=== PATIENT | male | born 1955 | race Caucasian/White ===

== ENCOUNTER → 2019-01-27 | Outpatient (CLI) | payer BC ==
[~2019-01-27] MED LIST: DIATRIZOATE MEGL/DIATRIZOA SOD 30 ML BTL PO ONE; IOPAMIDOL 370 MG/ML 200 ML INFUS..BTL INJ ONE; PRILOSEC OTC20 MG PO; SODIUM CHLORIDE 0.9% 50ML 50 ML ONE
[2019-01-27 10:22] LABS: BLOOD UREA NITROGEN 12 mg/dL (7-26); BUN/CREATININE RATIO 12 (6-25); CREATININE, SERUM 0.98 mg/dL (0.72-1.25); EST GLOMERULAR FILTRATION RATE > 60 ML/MIN (60-)
--- NOTE | 2019-01-27 14:41 | Diagnostic Imaging Report ---
EXAM: CT Pelvis WITH intravenous contrast INDICATION: Rectal mass COMPARISON: None. TECHNIQUE: The pelvis was scanned utilizing a multidetector helical scanner from the aortic bifurcation to the pubic symphysis after administration of IV contrast. Coronal and sagittal reformations were obtained. Routine protocol was performed. Scan was performed during portal venous phase. IV CONTRAST: 100mL of Isovue 370 ORAL CONTRAST: Gastrografin RADIATION DOSE: Total DLP: 288.2 mGy*cm Dose modulation, iterative reconstruction, and/or weight based adjustment of the mA/kV was utilized to reduce the radiation dose to as low as reasonably achievable. FINDINGS: PELVIC ORGANS/BLADDER: Unremarkable. PERITONEUM / RETROPERITONEUM: No free air or fluid. LYMPH NODES: No lymphadenopathy. VESSELS: Heavy diffuse atherosclerotic calcifications of the distal abdominal aorta and major branches. GI TRACT: Contrast fills the rectum and visualized colon and part of the visualized small bowel. No abnormal bowel wall thickening or bowel obstruction. Normal appendix. BONES AND SOFT TISSUES: Unremarkable. IMPRESSION: No acute findings in the abdomen or pelvis. Specifically, no abnormal bowel wall thickening or bowel obstruction. Signed by: Luann Salazar MD on 01/27/2019 2:38 PM
== END ==
LOC: CT 09:25
PROVIDERS: ATTEND Internal Medicine Gastroenterology
DX: K62.89 Other specified diseases of anus and rectum (principal)
CPT/HCPCS: 36415; 72193; 82565; 84520; Q9967

== ENCOUNTER → 2019-02-08 | Day surgery (SDC) | payer BC ==
[2019-02-04 09:15] LABS: BASOPHILS % 0.4 % (0.0-1.0); EOSINOPHILS # (AUTO) 0.4 (0.0-0.4); EOSINOPHILS % 6.1 % (0.0-6.0); HEMOGLOBIN 14.6 g/dL (14.0-18.0); LYMPHOCYTES # (AUTO) 1.9 (1.0-3.2); LYMPHOCYTES % 27.4 % (18.0-39.1); MEAN CORPUSCULAR HEMOGLOBIN 31.4 pg (28-32); MEAN CORPUSCULAR VOLUME 92.5 fL (81-99); MONOCYTES # (AUTO) 0.7 (0.2-0.8); MONOCYTES % 10.5 % (4.4-11.3); NEUTROPHILS # (AUTO) 3.8 (2.1-6.9); NEUTROPHILS % 55.3 % (38.7-80.0); PLATELET COUNT 226 x10e3/uL (140-360); RED BLOOD COUNT 4.65 x10e6/uL (4.3-5.7); RED CELL DISTRIBUTION WIDTH 11.5 % (11.7-14.4)
[~2019-02-08] MED LIST changes: +ASPIRIN81 MG PO; +ATORVASTATIN CA20 MG PO; -DIATRIZOATE MEGL/DIATRIZOA SOD 30 ML BTL PO ONE; +FENTANYL CITRATE/PF 100MCG/2 ML INJ ONE; -IOPAMIDOL 370 MG/ML 200 ML INFUS..BTL INJ ONE; +LISINOPRIL10 MG PO; +MIDAZOLAM HCL 2 MG/2 ML VIAL ONE; +PROPOFOL IV EMULSION 10 MG/ML 50 ML VIAL ONE; -SODIUM CHLORIDE 0.9% 50ML 50 ML ONE
--- OUTSIDE RECORDS SUMMARY | 2019-02-08 10:23 | XMS REPORT ---
[facility] Address Unknown Phone Unavailable Care Team Providers Care Drapery Estimator Name Role Phone EDMUNDO OKEEFE Unavailable Unavailable Problems This patient has no known problems. Allergies, Adverse Reactions, Alerts This patient has no known allergies or adverse reactions. Medications This patient has no known medications. Results Test Description Test Time Test Comments Text Results Atomic Results Result Comments CT PELVIS W 2019-01-27 14:30:00 [place] [address] Patient Name: EMANUEL BYERS MR #: [id number] : 1955 Age/Sex: 63/M Req #: [id number] Adm Physician: Ordered by: EDMUNDO OKEEFE MD Report #: [id number] Location: CT Room/Bed: Procedure: [id number] CT/CT PELVIS W Exam Date: 01/27/19 Exam Time: 1400 REPORT STATUS: Signed EXAM: CT Pelvis WITH intravenous contrast INDICATION: Rectal mass COMPARISON: None. TECHNIQUE: The pelvis was scanned utilizing a multidetector helical scanner from the aortic bifurcation to the pubic symphysis after administration of IV contrast. Coronal and sagittal reformations were obtained. Routine protocol was performed. Scan was performed during portal venous phase. IV CONTRAST: 100mL of Isovue 370 ORAL CONTRAST: Gastrografin RADIATION DOSE: Total DLP: 288.2 mGy*cm Dose modulation, iterative reconstruction, and/or weight based adjustment of the mA/kV was utilized to reduce the radiation dose to as low as reasonably achievable. FINDINGS: PELVIC ORGANS/BLADDER: Unremarkable. PERITONEUM / RETROPERITONEUM: No free air or fluid. LYMPH NODES: No lymphadenopathy. VESSELS: Heavy diffuse atherosclerotic calcifications of the distal abdominal aorta and major branches. GI TRACT: Contrast fills the rectum and visualized colon and part of the visualized small bowel. No abnormal bowel wall thickening or bowel obstruction. Normal appendix. BONES AND SOFT TISSUES: Unremarkable. IMPRESSION: No acute findings in the abdomen or pelvis. Specifically, no abnormal bowel wall thickening or bowel obstruction. Signed by: Susy Salazar MD on 01/27/2019 2:38 PM Dictated By: SUSY SALAZAR MD [id number] Transcribed By: TAB on 01/27/19 1438 COPY TO: EDMUNDO OKEEFE MD
--- OUTSIDE RECORDS SUMMARY | 2019-02-08 10:23 | XMS REPORT | Encounter Summary ---
Author Organization Unknown Address [address] [place] [address] Phone [phone] Care Team Providers Care Appliance Painter And Refinisher Name Role Phone Dr. Isamar Machado 3 [phone] Wilner Rosas MD 82 [phone] Savannah Avina MD 105 [phone] Reason for Visit Nicotine dependence; Right leg problem Instructions 1. Coronary arteriosclerosis in [place] artery 2. Right side sciatica chiropractic referral physical therapy referral sciatica: exercises sciatica: care instructions sciatica education 3. Adult health examination CMP, serum or plasma lipid panel, serum CBC w/ auto diff TSH, serum or plasma 4. Nicotine dependence 5. Body mass index 20-24 - normal 6. Immunization Adacel (Tdap Adolesn/Adult)(PF)2 Lf-(2.5-5-3-5)-5 Lf/0.5 mL IM syringe 7. Screening for disorder hepatitis C virus RNA, quant, PCR, serum or plasma PSA, serum or plasma 8. Hypertensive disorder 9. Hyperlipidemia high cholesterol: care instructions 10. Squamous cell carcinoma of skin Discussion Note: None recorded. Plan of Care Reminders Provider Appointments Est Patient 08/17/2018 9:00AM Isamar Machado MD Lab CMP, Serum or Plasma 07/13/2018 [facility] Lipid Panel, Serum 07/13/2018 [facility] CBC W/ Auto Diff 07/13/2018 [facility] TSH, Serum or Plasma 07/13/2018 [facility] Hepatitis C Virus RNA, Quant, PCR, Serum or Plasma 07/13/2018 [facility] PSA, Serum or Plasma 07/13/2018 [facility] Referral Chiropractic Referral 07/13/2018 Physical Therapy Referral 07/13/2018 Procedures None recorded. Surgeries None recorded. Imaging None recorded. Medications Name Start Date - QD - HUE atorvastatin 20 mg tablet Take 1 tablet every day by oral route for 30 days. cyclobenzaprine 10 mg tablet Take 1 tablet 3 times a day by oral route as needed. lisinopril 10 mg tablet Take 1 tablet every day by oral route for 30 days. naproxen 500 mg tablet Take 1 tablet twice a day by oral route as needed. Medications Administered None recorded. Vitals Height Weight BMI Blood Pressure 6 ft 164 lbs 22.2 kg/m2 (1) 146/86 mm[Hg] (2) 144/86 mm[Hg] Lab Results None recorded. Allergies Code Code System Name Reaction Severity Status Onset 2670 RxNorm Codeine Vomiting Active 5640 RxNorm Ibuprofen Active Problems Name Status Onset Date Source Hyperlipidemia Active 07/22/2017 Hypertensive Disorder Active 07/22/2017 Nicotine Dependence Active 04/11/2018 Peripheral Vascular Disease Active 04/11/2018 Lumbago with Sciatica Active 04/11/2018 Squamous Cell Carcinoma of Skin Active 07/14/2018 Coronary Arteriosclerosis in [place] Artery Active 07/14/2018 Procedures None recorded. Vaccine List Vaccine Type Tdap 07/13/20180.5 mL Social History Smoking Status Former Smoker Past Encounters 07/13/2018 Coronary Arteriosclerosis in [place] Artery; Right Side Sciatica; Adult Health Examination; Nicotine Dependence; Body Mass Index 20-24 - Normal; Immunization; Screening for Disorder; Hypertensive Disorder; Hyperlipidemia; Squamous Cell Carcinoma of Skin Isamar Machado MD: [id number] [place] [address], Ph. History of Present Illness Lower Leg Reported By: Patient HPI: Location: right, posterior, deep. Quality: aching, burning, dull, deep, frequent. Severity: moderate, pain level 5/10. Duration: 6 months. Timing: chronic, gradual, recurrent. Alleviating Factors: standing, position change: leg , exercise, stretching, OTC medication. Aggravating Factors: sitting. Associated Symptoms: no redness, no warmth, no ecchymosis, no drainage, no fever, no chills, no weight loss, numbness, tingling Note:62yo male presents for smoking cessation follow-up. Stopped Chantix two weeks ago. Has not resumed smoking. Quit smoking on 05/04/18 with no cigarettes! Less cough. Weight up 3#.<div>Since last visit, pt saw his stem shaper, Dr Rosas on 06/22/18. Consult note reviewed. Pt has f/u with Dr Rosas tomorrow. Tried Dyazide, but pt had side effects of leg cramps on it & stopped after a week. Swelling did resolve. Had vascular studies of both legs - normal per pt. Currently on ASA 81mg qd, lisinopril 10mg qd, and atorvastatin 20mg qhs.</div>< div>Stopped taking naproxen along with dyazide. Has not tried muscle relaxant, cyclobenzaprine.
<div>
</div><div>Is considering chiropractor evaluation. Has been to PT in past. Right leg pain worse with sitting. Airrosti pressure point treatment. No back pain. Posterior right leg pain for past 6mo. See below. </div><div>
</div><div>Previously:</div><div>Hx of right posterior leg pain for the past 6-8wks. Worse with sitting. Better with standing, walking everyday. Has past hx of herniated disc in lumbar spine (XR, MRI with Dr Peters). Was sent to Dr Pearl, neurosurgery & ended up not having surgery. Went to PT. Reviewed historic records & MRI of lumbar spine from 11/2014 & XR of lumbar spine 10/2014 showed degenerative disc disease on right at L5-S1 & mild at L4-5 on right.
</div><div><div>Went to urgent care last June 2017 for muscle spasms in back.</div><div>
</div><div>PMHx:</div><div>Was recently seen last fall & had Moh's surgery for SCC on tip of nose by Dr Compa Yates on 02/08/18. Has had previous skin cancer removed by Dr Yates. No melanoma.</div><div>Pt had cardiac cath in 06/[address] Rosas, stem shaper found no significant blockage. No stent, no bypass, no hx of [place].< /div><div>Htn - started on medication by Dr Rosas in 2014</div><div> Hyperlipidemia - started on atorvastatin by Dr Rosas in 2014</div><div>Family hx of CAD in father - father had valve replacement & CABGx2 age 80</div><div> Smoker. 1ppd. Takes care of young grandchildren during week with , including 2yo.</div></div></div> Review of Systems:ROS as noted in the HPI Review of Systems Comprehensive General Adult ROS Reported By: Patient Constitutional: Constitutional: no fever Eyes: Eyes: no vision change Cardiovascular: Cardiovascular: no chest pain, no palpitations, no lightheadedness Respiratory: Respiratory: no cough, no wheezing, no shortness of breath Gastrointestinal: Gastrointestinal: no abdominal pain, no nausea, no vomiting, no constipation, no diarrhea Musculoskeletal: Musculoskeletal: no swelling in the extremities, muscle aches, arthralgias/joint pain, back pain Neurologic: Neurologic: no loss of consciousness, no headaches Psychiatric: Psych: no depression, no alcohol abuse, no anxiety, no suicidal thoughts Physical Exam Lower Leg, General Adult Exam (male) Reported By: Patient Constitutional: General Appearance: healthy-appearing, NAD Gait and Station: Appearance: normal gait Cardiovascular System: Heart Auscultation: RRR, normal S1, normal S2, no murmurs Skin: Inspection and palpation: no rash, no lesions; fair complexion, prior skin cancers removed Neurologic: Sensation: grossly intact. Reflexes: DTRs 2+ bilaterally throughout Eyes: Lids and Conjunctivae: non-injected, no discharge Neck: Neck: supple, trachea midline. Thyroid: no enlargement, non-tender Lungs: Auscultation: breath sounds normal Abdomen: Inspection and Palpation: soft, non-distended, no tenderness, no guarding Musculoskeletal:: Motor Strength and Tone: normal, normal tone. Joints, Bones, and Muscles: normal movement of all extremities, no bony abnormalities, tenderness. Extremities: no edema, no palpable cord Back: Thoracolumbar Appearance: ; Mildly tender in the lumbar area. Normal ROM. Negative straight leg raising test bilaterally
--- OUTSIDE RECORDS SUMMARY | 2019-02-08 10:23 | XMS REPORT | Encounter Summary ---
Author Organization Unknown Address [address] [place] [address] Phone [phone] Care Team Providers Care Bankruptcy Assistant Name Role Phone Dr. Isamar Machado 3 [phone] Wilner Rosas MD 82 [phone] Savannah Avina MD 105 [phone] Reason for Visit Nicotine dependence; Right leg problem Instructions 1. Nicotine dependence stopping smoking: care instructions Chantix Continuing Month Box 1 mg tablet 2. Immunization refused 3. Body mass index 20-24 - normal 4. Lumbago with sciatica naproxen 500 mg tablet 5. Hypertensive disorder 6. Hyperlipidemia Discussion Note: None recorded. Plan of Care Reminders Provider Appointments Est Patient 07/13/2018 9:30AM Isamar Machado MD Lab None recorded. Referral None recorded. Procedures None recorded. Surgeries None recorded. Imaging None recorded. Medications Name Start Date QD - HUE atorvastatin 20 mg tablet Take 1 tablet every day by oral route for 30 days. Chantix Continuing Month Box 1 mg tablet Take 1 tablet twice a day by oral route. Chantix Starting Month Box 0.5 mg (11)-1 mg (42) tablets in dose pack Take 1 startr pk by oral route. cyclobenzaprine 10 mg tablet Take 1 tablet 3 times a day by oral route as needed. lisinopril 10 mg tablet Take 1 tablet every day by oral route for 30 days. naproxen 500 mg tablet Take 1 tablet twice a day by oral route as needed. take with food Medications Administered None recorded. Vitals Height Weight BMI Blood Pressure 6 ft 161.2 lbs 21.9 kg/m2 138/80 mm[Hg] Lab Results None recorded. Allergies Code Code System Name Reaction Severity Status Onset 2670 RxNorm Codeine Vomiting Active 5640 RxNorm Ibuprofen Active Problems Name Status Onset Date Source Hyperlipidemia Active 07/22/2017 Hypertensive Disorder Active 07/22/2017 Nicotine Dependence Active 04/11/2018 Peripheral Vascular Disease Active 04/11/2018 Lumbago with Sciatica Active 04/11/2018 Procedures None recorded. Vaccine List None recorded. Social History Smoking Status Former Smoker Past Encounters 05/18/2018 Nicotine Dependence; Immunization Refused; Body Mass Index 20-24 - Normal; Lumbago with Sciatica; Hypertensive Disorder; Hyperlipidemia Isamar Machado MD: [id number] [place] [address], Ph. History of Present Illness Lower Leg Reported By: Patient Note:62yo male presents for evaluation of right posterior leg pain for the [...] at L5-S1 & mild at L4-5 on right.<div>Went to urgent care last June 2017 for muscle spasms in back. Noted that difficult to find pulse in right foot.</div><div>Pt also notes that he quit smoking 14 days ago using Chantix! He is very pleased with Chantix. Had been smoking 1ppd for many years. is also going to try to quit smoking with Chantix ( was seen yesterday in office). Pt requesting continuing month box of Chantix. Discussed that he may need this medication for total of 7-12wks. Will refill Chantix for next 2 mo (8 wks) & rtn visit in 2mo. Congratulated pt on quitting smoking!</div><div>
</div><div>PMHx:</div><div>Was recently seen last fall & had Moh's surgery for SCC on tip of nose by Dr Compa Yates on 02/08/18. Has had previous skin cancer removed by Dr Yates. No melanoma.< /div><div>Pt had cardiac cath in 06/[address] Rosas, storage administrator found no significant blockage. No stent, no bypass, no hx of [place].</div><div>Htn - started on medication by Dr Rosas in 2015</div><div>Hyperlipidemia - started on atorvastatin by Dr Rosas in 2015</div><div>Family hx of CAD in father - father had valve replacement & CABGx2 age 80</div><div>Smoker. 1ppd. Takes care of young grandchildren during week with , including 2yo.</div> Review of Systems:ROS as noted in the [...]
[2019-02-08 12:40] VITALS: BP 109/66
== END | disposition home or self-care (01) ==
LOC: OR 08:52
PROVIDERS: ATTEND Internal Medicine Gastroenterology
DX: K29.70 Gastritis, unspecified, without bleeding (principal); K62.89 Other specified diseases of anus and rectum; K44.9 Diaphragmatic hernia without obstruction or gangrene; K22.8 Other specified diseases of esophagus; K64.8 Other hemorrhoids; K64.4 Residual hemorrhoidal skin tags; Z88.6 Allergy status to analgesic agent; Z88.8 Allergy status to other drugs, medicaments and biological substances; Z01.810 Encounter for preprocedural cardiovascular examination; Z01.812 Encounter for preprocedural laboratory examination; Z79.82 Long term (current) use of aspirin
CPT/HCPCS: 36415; 43239; 45378; 85025; 93005; J2250; J2704; J3010